=== PATIENT | male | born 1945 | race Caucasian/White ===

== ENCOUNTER 2016-12-04 21:41 | Emergency (ER) | payer OTHER ==
[2016-12-04 23:29] LABS: ALBUMIN 3.7 g/dL (3.4-4.8); CREATININE 0.7 mg/dL (0.7-1.2); GLOBULIN (CALCULATION) 3.2 g/dL (2.2-4.2); POTASSIUM 3.5 mmol/L (3.5-5.1); TOTAL PROTEIN 6.9 g/dL (6.4-8.3)
[2016-12-05 01:42] LABS: TROPONIN T < 0.010 ng/mL
[2016-12-05 01:44] LABS: PRO-BNP 542 pg/mL (0-125)
== END 2016-12-05 03:50 | disposition home or self-care (01) ==
LOC: FER 21:41
PROVIDERS: Emergency Medicine
DX: R10.9 Unspecified abdominal pain (principal); I48.91 Unspecified atrial fibrillation; Z79.899 Other long term (current) drug therapy
CPT/HCPCS: 36415; 71010; 80053; 82150; 83690; 83880; 84484; J1885

== ENCOUNTER 2016-12-13 11:08 | Inpatient (IN) | payer OTHER ==
[2016-12-13 12:18] LABS: BASOPHIL 0.2 % (0-2); EOSINOPHIL 0.2 % (0-7); HCT 45.5 % (42.0-52.0); HGB 16.2 g/dl (13.2-18.0); LYMPHOCYTE 19.7 % (15-48); MCH 31.2 pg (25.0-31.0); MCHC 35.6 g/dL (32.0-36.0); MCV 87.7 fL (78.0-100.0); MONOCYTE 9.4 % (0-12); MPV 10.1 fL (6.0-9.5); NEUTROPHIL 70.5 % (41-80); PLT 236 K/uL (150-400); RBC 5.19 M/uL (4.70-6.00); RDW 13.1 % (11.5-14.0); WBC 6.3 K/uL (4.0-10.5)
[2016-12-13 12:20] LABS: INR 1.04 (0.9-1.2); LACTIC ACID 2.8 mmol/L (0.5-2.2); PROTHROMBIN TIME 13.2 SECONDS (11.7-14.0); PTT 32.2 SECONDS (23.2-31.4)
[2016-12-13 12:21] LABS: D-DIMER < 0.27 ug/mLFEU (0.00-0.41)
[2016-12-13 12:23] LABS: ALBUMIN 4.3 g/dL (3.4-4.8); BILIRUBIN - TOTAL 1.4 mg/dL (0.1-1.0); CREATININE 0.7 mg/dL (0.7-1.2); GLOBULIN (CALCULATION) 3.5 g/dL (2.2-4.2); MAGNESIUM 1.99 mg/dL (1.40-2.10); POTASSIUM 3.7 mmol/L (3.5-5.1); TOTAL PROTEIN 7.8 g/dL (6.4-8.3)
[2016-12-13 13:07] LABS: CLARITY CLEAR (CLEAR); COLOR YELLOW (YELLOW); SPECIFIC GRAVITY <=1.005 (1.001-1.030)
[2016-12-13 13:08] LABS: BILIRUBIN NEGATIVE (NEGATIVE); BLOOD NEGATIVE Ery/uL (NEGATIVE); GLUCOSE (U) NORMAL (NORMAL); KETONE (U) 1+ (SMALL) mg/dL (NEGATIVE); LEUKOCYTES NEGATIVE Leu/uL (NEGATIVE); NITRITE NEGATIVE (NEGATIVE); PROTEIN NEGATIVE (NEGATIVE); UROBILINOGEN 0.2 mg/dL (0.2-1.0); pH 7.5 (5.0-9.0)
[2016-12-14 04:17] LABS: HCT 39.7 % (42.0-52.0); HGB 13.7 g/dl (13.2-18.0); MCH 31.4 pg (25.0-31.0); MCHC 34.5 g/dL (32.0-36.0); MCV 91.1 fL (78.0-100.0); RBC 4.36 M/uL (4.70-6.00); RDW 13.5 % (11.5-14.0); WBC 5.7 K/uL (4.0-10.5)
[2016-12-14 04:39] LABS: CREATININE 0.7 mg/dL (0.7-1.2); POTASSIUM 3.6 mmol/L (3.5-5.1)
[2016-12-14 04:56] LABS: FOLIC ACID (SERUM) > 20.0 ng/mL (5.6-45.8)
== END 2016-12-14 14:58 | disposition left against medical advice (07) | DRG 309 ==
LOC: FER 11:08 → FTCU 14:10
PROVIDERS: Emergency Medicine; ADMIT Internal Medicine
DX: I48.91 Unspecified atrial fibrillation (principal); E87.1 Hypo-osmolality and hyponatremia; E11.9 Type 2 diabetes mellitus without complications; G30.9 Alzheimer's disease, unspecified; F02.80 Dementia in other diseases classified elsewhere, unspecified severity, without behavioral disturbance, psychotic disturbance, mood disturbance, and anxiety; K57.90 Diverticulosis of intestine, part unspecified, without perforation or abscess without bleeding; F41.9 Anxiety disorder, unspecified; Z87.891 Personal history of nicotine dependence
CPT/HCPCS: 36415; 70450; 71010; 80048; 80053; 81003; 82607; 82746; 82962; 83605; 83690; 83735; 84443; 84484; 85025; 85379; 85610; 85652; 85730; 87040; 87088; 93005

== ENCOUNTER 2016-12-15 15:03 | Emergency (ER) | payer OTHER ==
[2016-12-15 16:37] LABS: BASOPHIL 0.1 % (0-2); EOSINOPHIL 0.4 % (0-7); HCT 42.3 % (42.0-52.0); HGB 14.5 g/dl (13.2-18.0); LYMPHOCYTE 15.8 % (15-48); MCH 31.3 pg (25.0-31.0); MCHC 34.3 g/dL (32.0-36.0); MCV 91.2 fL (78.0-100.0); MONOCYTE 11.4 % (0-12); MPV 9.7 fL (6.0-9.5); NEUTROPHIL 72.3 % (41-80); PLT 218 K/uL (150-400); RBC 4.64 M/uL (4.70-6.00); RDW 13.5 % (11.5-14.0)
[2016-12-15 16:51] LABS: INR 1.11 (0.9-1.2); PROTHROMBIN TIME 13.9 SECONDS (11.7-14.0)
[2016-12-15 16:58] LABS: ALBUMIN 3.8 g/dL (3.4-4.8); BILIRUBIN - TOTAL 1.1 mg/dL (0.1-1.0); CKMB 2.94 ng/mL (0.97-4.94); GLOBULIN (CALCULATION) 3.4 g/dL (2.2-4.2); POTASSIUM 3.9 mmol/L (3.5-5.1); TOTAL PROTEIN 7.2 g/dL (6.4-8.3); TROPONIN T < 0.010 ng/mL
[2016-12-15 17:33] LABS: BILIRUBIN NEGATIVE (NEGATIVE); BLOOD NEGATIVE Ery/uL (NEGATIVE); CLARITY CLEAR (CLEAR); COLOR YELLOW (YELLOW); GLUCOSE (U) NORMAL (NORMAL); KETONE (U) NEGATIVE (NEGATIVE); LEUKOCYTES NEGATIVE Leu/uL (NEGATIVE); NITRITE NEGATIVE (NEGATIVE); PROTEIN NEGATIVE (NEGATIVE)
== END 2016-12-15 18:21 | disposition home or self-care (01) ==
LOC: FER 15:03
PROVIDERS: Emergency Medicine
DX: K59.00 Constipation, unspecified (principal); R10.84 Generalized abdominal pain; R51 Headache; I48.91 Unspecified atrial fibrillation; F03.90 Unspecified dementia, unspecified severity, without behavioral disturbance, psychotic disturbance, mood disturbance, and anxiety; Z87.19 Personal history of other diseases of the digestive system; Z79.899 Other long term (current) drug therapy
CPT/HCPCS: 36415; 74022; 80053; 81003; 82550; 82553; 83690; 84484; 85025; 85610; 85730; 93005